=== PATIENT | male | born 2000 | race Caucasian/White ===

== ENCOUNTER 2022-07-06 20:25 | Emergency (ER) | payer MEDICAID, SELFPAY ==
--- NOTE | ~2022-07-06 | XR_ITS ---
EXAMINATION: XR CHEST CLINICAL INFORMATION: Cough COMPARISON: None TECHNIQUE: 2 views of the chest were obtained. FINDINGS: Streaky opacity in superior segment of the left lower lobe. Right lung clear. No pleural effusion or pneumothorax. Normal heart size and pulmonary vascularity. No acute osseous abnormalities. XR/XR chest 2V IMPRESSION: Left lower lobe streaky opacity could represent infiltrate.
[2022-07-06 20:33] VITALS: BP 105/47; BP 119/79; PULSE 78; PULSE 82; RESP 18; TEMP 37.2; O2SAT 96; O2SAT 97; BMI 25.4
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
--- NOTE | 2022-07-06 20:36 | ECG_ITS ---
Test Reason : FAITINTED Blood Pressure : / mmHG Vent. Rate : 061 BPM Atrial Rate : 061 BPM P-R Int : 146 ms QRS Dur : 088 ms QT Int : 378 ms P-R-T Axes : 046 018 017 degrees QTc Int : 380 ms Normal sinus rhythm with sinus arrhythmia Normal ECG No previous ECGs available Referred By: Vicenta Duncan Electronically Signed By:SESAR COPELAND
--- NOTE | 2022-07-06 20:37 | PC.NURSE ---
Patient arrived by EMS after one minute syncopal episode at his friends house. Patient reported to take first-time dab of marijuana. He also noted a fever and non productive cough for one day. Patient alert and oriented x3. Vitals stable. Patient oriented to ED. Call marc in reach. Will continue to monitor
[2022-07-06 21:27] LABS: Alanine Aminotransferase 13 U/L (0-40); Albumin Level 4.9 g/dL (3.5-5.0); Alkaline Phosphatase 96 U/L (39-117); Anion Gap 17 (12-20); Aspartate Amino Transferase 23 U/L (5-37); Bilirubin Total 1.1 mg/dL (0.0-1.0); Blood Urea Nitrogen 13 mg/dL (9-16); Carbon Dioxide 23 mmol/L (22-29); Chloride 104 mmol/L (96-108); Creatinine Clr Calc Pharmacy 126.6; Estimated Glomerular Filt Rate > 60; Glucose Random 94 mg/dL (60-115); Magnesium 2.3 mg/dL (1.6-2.6); Sodium 140 mmol/L (135-145); Total Protein 7.9 g/dL (6.5-8.0); Troponin-I High Sensitivity < 3.5 ng/L (<3.5-35.0)
[2022-07-06 21:43] LABS: Influenza A PCR NEGATIVE (Negative); Influenza B PCR NEGATIVE (Negative); Resp Syncy Virus RNA Qual PCR NEGATIVE (Negative); SARS COV2 PCR INHOUSE NEGATIVE (Negative)
[2022-07-06 21:47] LABS: Basophils Percent Auto 0.4 % (0-2); Eosinophils Percent Auto 0.1 % (0-4); Hematocrit 39.9 % (42.0-52.0); Hemoglobin 13.3 g/dl (14.0-18.0); Imm Gran Abs Auto 0.02 X10*3/uL (0.00-0.03); Imm Gran Pct Auto 0.3 % (0.0-0.4); Lymphocytes Absolute Auto 1.2 X10*3/uL (1.2-4.9); Lymphocytes Percent Auto 15.8 % (20-40); Mean Corpuscular HGB Conc 33.3 g/dl (31.0-36.0); Mean Corpuscular Hemoglobin 29.5 pg (27.0-33.0); Mean Corpuscular Volume 88.5 fL (80.0-98.0); Mean Platelet Volume 10.3 fL (9.4-12.4); Monocytes Percent Auto 13.1 % (2-11); Neutrophils Absolute Auto 5.2 x10*3/uL (2.0-8.3); Neutrophils Percent Auto 70.3 % (45-73); Platelet Count 196 X10*3/uL (160-400); Red Blood Count 4.51 X10*6/uL (4.60-5.80); Red Cell Distribution Width 11.9 % (11.0-16.0); White Blood Count 7.4 X10*3/uL (4.8-10.8)
[2022-07-06] MEDS: 0.9 % Sodium Chloride 1,000 ML 999 ML IV (22:23)
[2022-07-06 22:44] VITALS: BP 116/58; PULSE 78; RESP 17; O2SAT 96
[2022-07-06 23:25] VITALS: O2SAT 96
[2022-07-06] MEDS: Amoxicillin/Potassium Clav 875 MG TABLET PO (23:31)
== END 2022-07-06 23:36 | disposition home or self-care (01) ==
PROVIDERS: Physician Assistant Medical; Emergency Provider Student in an Organized Health Care Education/Training Program
DX: R55 Syncope and collapse (principal); F19.90 Other psychoactive substance use, unspecified, uncomplicated; J18.9 Pneumonia, unspecified organism; Z20.822 Contact with and (suspected) exposure to COVID-19; Z20.828 Contact with and (suspected) exposure to other viral communicable diseases; R50.9 Fever, unspecified; F12.90 Cannabis use, unspecified, uncomplicated
CPT/HCPCS: 0241U; 36415; 71046; 80053; 83735; 84484; 85025; 93005; 96360; 99284; 99285